=== PATIENT | female | born 1980 | race African-American/Black ===

== ENCOUNTER 2017-09-05 18:17 | Emergency (ER) | payer SELFPAY ==
[~2017-09-05] VITALS: Ht 170.2 cm; Wt 113.4 kg
[2017-09-05] MEDS ORDERED: NKM (18:30)
--- NOTE | 2017-09-05 18:31 | Emergency Room Report ---
History of Present Illness General Chief Complaint: Complications Source: Patient Present Illness HPI 36-year-old female presents to the emergency department complaining of vaginal bleeding since Friday (3 days ) and a positive at home urine test. Patient calculated to be approximately 9 weeks since her last menstrual cycle. Patient is and did not require rhogam or have any complications with previous NVD's. she denies abdominal pain, nausea, vomiting, fevers, chills. She denies complications with previous pregnancies. Patient states she has not followed up with an [employer] and and has not had IUP established. She scratched blood loss to scant bright red blood upon wiping when using the restroom in addition to visible blood on and panti-liners. Patient states she' s used approximately or panti-liners per day. Denies CP, Palpitations, LOC, AMS , dizziness, Changes in Vision, Sensation, paresthesias, or a sudden severe headache. Allergies: Coded Allergies: No Known Allergies (Unverified , 09/05/17) Patient History Past Medical History: see triage record Past Surgical History: none Pertinent Family History: none Last Menstrual Period: 07/01/17 Now: Yes - 9 weeks Immunizations: UTD Reviewed Nursing Documentation: PMH: Agreed, PSxH: Agreed Nursing Documentation-PMH Past Medical History: No Stated History Review of Systems All Other Systems: negative except mentioned in HPI Physical Exam Vital Signs Date Time Temp Pulse Resp B/P (MAP) Pulse Ox O2 Delivery O2 Flow Rate FiO2 09/05/17 18:23 98.1 72 17 127/90 100 Room Air Sp02 EP Interpretation: reviewed, normal General Appearance: no apparent distress, alert, GCS 15, non-toxic Head: normocephalic, atraumatic Eyes: bilateral eye normal inspection ENT: hearing grossly normal, normal voice Respiratory: lungs clear, normal breath sounds, speaking full sentences Cardiovascular #1: regular rate, rhythm Gastrointestinal: normal bowel sounds, non tender, soft, no guarding, no rebound Rectal: deferred Genitourinary: normal inspection, no CVA tenderness, adnexa normal, bladder normal, cervix normal, ext genitalia/vag normal, os closed, other - scant bright red blood in the vaginal vault Musculoskeletal: back normal, gait/station normal Neurologic: alert, oriented x3, responsive, motor strength/tone normal, sensory intact, normal gait, speech normal Skin: normal color, no rash, warm/dry, well hydrated Medical Decision Making PA Attestation Dr. Hernandez is my supervising Physician whom patient management has been discussed with. Diagnostic Impression: Primary Impression: Spotting affecting in first trimester Additional Impression: Threatened in early ER Course 36-year-old female presents to the emergency department complaining of vaginal bleeding since Friday (3 days ) and a positive at home urine test. Patient calculated to be approximately 9 weeks since her last menstrual cycle. Patient is and did not require rhogam or have any complications with previous NVD's. she denies abdominal pain, nausea, vomiting, fevers, chills. She denies complications with previous pregnancies. Patient states she has not followed up with an [employer] and and has not had IUP established. She scratched blood loss to scant bright red blood upon wiping when using the restroom in addition to visible blood on and panti-liners. Patient states she' s used approximately or panti-liners per day. Denies CP, Palpitations, LOC, AMS , dizziness, Changes in Vision, Sensation, paresthesias, or a sudden severe headache. Ddx considered but are not limited to: Fibroid, ectopic , Fibroid, Spontaneous ,hypovolemia, anemia just to name a few. Vital signs: are WNL, pt. is afebrile H&PE are most consistent with: spotting during early , threatened ORDERS: -CBC: unremarkable no evidence of significant acute blood loss or anemia, no leukocytosis -BMP: WNL -Urine hcg- Positive -UA: negative for infection, presence of RBC's and occult blood consistent with vaginal bleeding. -serum Hcg Quant: 2443 - Blood/RH type and screen- Pending at time of D/C ( pt. had blood drawn twice as lab stated they did not receive all the required tubes, pt. was unable to wait for results of type and screen. d/w pt. that if it comes back negative I will call her to return to ED or go immediately to OBGYN. lab canceled the type and screen and results were never received due to this cancellation after the pt. left ED Department. lab did not call ED to inform that this important test was being canceled). Although unlikely that pt. is Rh negative as she stated she has had two prior deliveries and did not need rho-flaco, I felt it was important to still obtain this test for our documentation to support pt. reported hx. -Pelvic US complete- intrauterine estimated at 6 weeks gestation, no HR, no free-fluid, normal ovaries with flow per US tech verbal report. ED INTERVENTIONS: None at this time. - D/w pt. importance of follow up in 48 hours with OBGYN for repeat hcg, and US. gave ED return precautions. DISCHARGE: At this time pt. is stable for d/c to home. Will provide printed patient care instructions, and any necessary prescriptions. Care plan and follow up instructions have been discussed with the patient prior to discharge. Labs Test 09/05/17 18:35 09/05/17 18:56 09/05/17 21:15 Urine Color Yellow Urine Appearance Clear Urine pH 5 (4.5-8.0) Urine Specific [place] 1.025 (1.005-1.035) Urine Protein 1+ (NEGATIVE) Urine Glucose (UA) Negative (NEGATIVE) Urine Ketones 1+ (NEGATIVE) Urine Occult Blood 5+ (NEGATIVE) Urine Nitrite Negative (NEGATIVE) Urine Bilirubin Negative (NEGATIVE) Urine Urobilinogen 1 MG/DL (0.0-1.0) Urine Leukocyte Esterase 1+ (NEGATIVE) Urine RBC 2-4 /HPF (0 - 2) Urine WBC 2-4 /HPF (0 - 2) Urine Squamous Epithelial Cells Few /LPF (NONE/OCC) Urine Bacteria Few /HPF (NONE) Urine HCG, Qualitative Positive Sodium Level 136 MMOL/L (136-145) Potassium Level 4.0 MMOL/L (3.5-5.1) Chloride Level 104 MMOL/L (98-107) Carbon Dioxide Level 20 MMOL/L (21-32) Blood Urea Nitrogen 6 mg/dL (7-18) Creatinine 0.9 MG/DL (0.55-1.30) Estimat Glomerular Filtration Rate > 60 mL/min (>60) Glucose Level 85 MG/DL (74-106) Calcium Level 9.7 MG/DL (8.5-10.1) Human Chorionic Gonadotropin, Quant 2443 mIU/mL (1-6) White Blood Count 4.9 K/UL (4.8-10.8) Red Blood Count 4.24 M/UL (4.20-5.40) Hemoglobin 13.9 G/DL (12.0-16.0) Hematocrit 40.1 % (37.0-47.0) Mean Corpuscular Volume 95 FL (80-99) Mean Corpuscular Hemoglobin 32.7 PG (27.0-31.0) Mean Corpuscular Hemoglobin Concent 34.6 G/DL (32.0-36.0) Red Cell Distribution Width 12.9 % (11.6-14.8) Platelet Count 240 K/UL (150-450) Mean Platelet Volume 11.1 FL (6.5-10.1) Neutrophils (%) (Auto) 49.0 % (45.0-75.0) Lymphocytes (%) (Auto) 43.0 % (20.0-45.0) Monocytes (%) (Auto) 5.7 % (1.0-10.0) Eosinophils (%) (Auto) 0.7 % (0.0-3.0) Basophils (%) (Auto) 1.6 % (0.0-2.0) Last Vital Signs Date Time Temp Pulse Resp B/P (MAP) Pulse Ox O2 Delivery O2 Flow Rate FiO2 09/05/17 18:23 98.1 72 17 127/90 100 Room Air Disposition: HOME, SELF-CARE Condition: Stable Scripts Vit #91/Fe Fum/Fa/Dha ( + DHA COMBO PACK) 1 Each Combo..pkg 1 EACH PO DAILY, #1 PACK 3 Refills Prov: Peyton Mcgill 09/05/17 Patient Instructions: Threatened Miscarriage, [id number], Vaginal Bleeding During , First Trimester, [id number] Additional Instructions: Take medications as directed. Follow up with a OBGYN in 48 Hours for repeat hcg today your quant was 2336 and repeat Ultra Sound, even if your symptoms have resolved. --Please review list of primary care clinics, if you do not already have a primary care provider Return sooner to ED if new symptoms occur, or current symptoms become worse. - Please note that this Emergency Department Report was dictated using [employer]re[employer]en[employer] specialist technology software, occasionally this can lead to erroneous entry secondary to interpretation by the dictation equipment. Peyton Mcgill Sep 05, 2017 18:31
[2017-09-05 18:52] LABS: APPEARANCE,URINE CLEAR; BILIRUBIN, URINE NEGATIVE (NEGATIVE); GLUCOSE, URINE (UA) NEGATIVE (NEGATIVE); KETONES,URINE 1+ (NEGATIVE); LEUKOCYTE ESTERASE ,URINE 1+ (NEGATIVE); NITRITE,URINE NEGATIVE (NEGATIVE); PH,URINE 5 (4.5-8.0); PROTEIN,URINE 1+ (NEGATIVE); UROBILINOGEN,URINE 1 MG/DL (0.0-1.0)
[2017-09-05 18:54] LABS: COLOR,URINE YELLOW
[2017-09-05 19:48] LABS: BLOOD UREA NITROGEN 6 mg/dL (7-18); CARBON DIOXIDE 20 MMOL/L (21-32); CHLORIDE 104 MMOL/L (98-107); CREATININE 0.9 MG/DL (0.55-1.30); SODIUM 136 MMOL/L (136-145)
[2017-09-05 19:49] LABS: CALCIUM 9.7 MG/DL (8.5-10.1)
[2017-09-05] MEDS ORDERED: PRENATAL + DHA1 EAC1 PO (20:57)
[2017-09-05 21:15] VITALS: BP 131/82
[2017-09-05 22:01] LABS: BASOPHILS % (AUTO) 1.6 % (0.0-2.0); EOSINOPHILS % (AUTO) 0.7 % (0.0-3.0); HEMATOCRIT 40.1 % (37.0-47.0); HEMOGLOBIN 13.9 G/DL (12.0-16.0); MEAN CORPUSCULAR VOLUME 95 FL (80-99); MONOCYTES % (AUTO) 5.7 % (1.0-10.0); PLATELET COUNT 240 K/UL (150-450); RED BLOOD COUNT 4.24 M/UL (4.20-5.40); RED CELL DISTRIBUTION WIDTH 12.9 % (11.6-14.8); WHITE BLOOD COUNT 4.9 K/UL (4.8-10.8)
--- NOTE | 2017-09-06 08:39 | Diagnostic Imaging Report ---
Indication: Pelvic pain Technique: ULT PELVIC + TRANSVAG. COMPLETE Comparison: None. Findings: There is an intrauterine gestational sac. A tiny echogenic structures noted within it. This does not have the appearance of a normal yolk sac. No normal yolk sacs identified. No cardiac activity. Ovaries are normal. Evidence of gestational sac corresponds to 5 weeks. Impression: Intrauterine gestational sac measure approximately 5 weeks gestation. Small echogenic structure within the sac. This may or present a small abnormal yolk sac or small embryo without a yolk sac. Viability not determined. Followup in 11 days suggested.
== END 2017-09-05 21:15 | disposition home or self-care (01) ==
LOC: EMR 18:45
DX: O20.0 Threatened abortion (principal); Z3A.09 9 weeks gestation of pregnancy
CPT/HCPCS: 76830; 76856; 80048; 81003; 81025; 84702; 85025; 99284

== ENCOUNTER 2017-09-09 09:35 | Emergency (ER) | payer SELFPAY ==
[~2017-09-09] VITALS: Ht 170.2 cm; Wt 113.4 kg
[~2017-09-09 09:35] MED LIST: NKM; PRENATAL + DHA1 EAC1 PO
[2017-09-09 09:50] VITALS: BP 125/65
[2017-09-09 10:19] LABS: BILIRUBIN, URINE NEGATIVE (NEGATIVE); COLOR,URINE PALE YELLOW; GLUCOSE, URINE (UA) NEGATIVE (NEGATIVE); KETONES,URINE NEGATIVE (NEGATIVE); LEUKOCYTE ESTERASE ,URINE NEGATIVE (NEGATIVE); NITRITE,URINE NEGATIVE (NEGATIVE); PH,URINE 6 (4.5-8.0); PROTEIN,URINE NEGATIVE (NEGATIVE); UROBILINOGEN,URINE NORMAL MG/DL (0.0-1.0)
[2017-09-09 10:22] LABS: APPEARANCE,URINE SLIGHTLY CLOUDY
[2017-09-09 10:48] LABS: BASOPHILS % (AUTO) 0.9 % (0.0-2.0); EOSINOPHILS % (AUTO) 0.9 % (0.0-3.0); HEMATOCRIT 37.2 % (37.0-47.0); HEMOGLOBIN 12.3 G/DL (12.0-16.0); LYMPHOCYTES % (AUTO) 42.9 % (20.0-45.0); MEAN CORPUSCULAR VOLUME 94 FL (80-99); MONOCYTES % (AUTO) 7.5 % (1.0-10.0); NEUTROPHILS % (AUTO) 47.8 % (45.0-75.0); PLATELET COUNT 207 K/UL (150-450); RED BLOOD COUNT 3.94 M/UL (4.20-5.40); RED CELL DISTRIBUTION WIDTH 12.6 % (11.6-14.8); WHITE BLOOD COUNT 5.3 K/UL (4.8-10.8)
[2017-09-09 10:53] LABS: ALANINE AMINOTRANSFERASE 21 U/L (12-78); ALBUMIN 3.9 G/DL (3.4-5.0); ALKALINE PHOSPHATASE 35 U/L (46-116); ANION GAP 7 mmol/L (5-15); ASPARTATE AMINO TRANSFERASE 17 U/L (15-37); BILIRUBIN,TOTAL 0.3 MG/DL (0.2-1.0); BLOOD UREA NITROGEN 5 mg/dL (7-18); CALCIUM 9.1 MG/DL (8.5-10.1); CARBON DIOXIDE 25 MMOL/L (21-32); CHLORIDE 107 MMOL/L (98-107); CREATININE 0.9 MG/DL (0.55-1.30); POTASSIUM 3.7 MMOL/L (3.5-5.1); SODIUM 139 MMOL/L (136-145)
--- NOTE | 2017-09-09 12:50 | Emergency Room Report ---
History of Present Illness General Chief Complaint: Vaginal Source: Patient Present Illness HPI This patient states that she has had light vaginal bleeding for about one week. She states that by dates she should be 9 weeks . She states that she was seen here 4 days ago and told she may be having a miscarriage. She states she continues to have light bleeding and some cramping. She denies passage of clots or tissue. She denies fever or chills. She denies nausea or vomiting. She denies dysuria or hematuria. She has no other complaints. Allergies: Coded Allergies: No Known Allergies (Unverified , 09/05/17) Patient History Past Medical History: none, see triage record Social History: Denies: smoking, alcohol use, drug use Now: Yes - 6 weeks. : 6 Para: 2 Reviewed Nursing Documentation: PMH: Agreed, PSxH: Agreed Nursing Documentation-PMH Past Medical History: No Stated History Review of Systems All Other Systems: negative except mentioned in HPI Physical Exam Vital Signs Date Time Temp Pulse Resp B/P (MAP) Pulse Ox O2 Delivery O2 Flow Rate FiO2 09/09/17 09:38 98.2 76 17 126/75 98 Room Air Sp02 EP Interpretation: reviewed, normal General Appearance: no apparent distress, alert, GCS 15, non-toxic Head: normocephalic, atraumatic Eyes: bilateral eye normal inspection, bilateral eye PERRL ENT: hearing grossly normal, normal pharynx, no angioedema, normal voice Neck: full range of motion, supple/symm/no masses Respiratory: chest non-tender, lungs clear, normal breath sounds, speaking full sentences Cardiovascular #1: regular rate, rhythm, no edema Gastrointestinal: normal bowel sounds, non tender, soft, non-distended, no guarding, no rebound Rectal: deferred Musculoskeletal: back normal, gait/station normal, normal range of motion, non- tender Neurologic: alert, oriented x3, responsive, motor strength/tone normal, sensory intact, speech normal Psychiatric: judgement/insight normal, memory normal, mood/affect normal, no suicidal/homicidal ideation Skin: normal color, no rash, warm/dry, well hydrated Medical Decision Making Diagnostic Impression: Primary Impression: Missed Additional Impression: demise ER Course Patient presents with a missed . She has down turning hCG and that no progression on her intrauterine . Pelvic ultrasound shows a six-week and the patient is around 9 weeks by dates. The size of the intrauterine and a downturned and hCG is consistent with a missed . The patient is also having bleeding. Further discussion with the patient and she would [facility]. She does not have medical insurance and cannot afford to have an admission to the hospital. Also, patient is stable in this is an appropriate plan. I do not suspect septic . The patient is stable with normal vital signs and laboratory workup. The patient is given close return precautions and followup instructions. Laboratory Tests Test 09/09/17 10:00 09/09/17 10:18 09/09/17 10:38 Urine Color Pale yellow Urine Appearance Slightly cloudy Urine pH 6 (4.5-8.0) Urine Specific [place] 1.010 (1.005-1.035) Urine Protein Negative (NEGATIVE) Urine Glucose (UA) Negative (NEGATIVE) Urine Ketones Negative (NEGATIVE) Urine Occult Blood 3+ (NEGATIVE) H Urine Nitrite Negative (NEGATIVE) Urine Bilirubin Negative (NEGATIVE) Urine Urobilinogen Normal MG/DL (0.0-1.0) Urine Leukocyte Esterase Negative (NEGATIVE) Urine RBC 2-4 /HPF (0 - 2) H Urine WBC 0-2 /HPF (0 - 2) Urine Squamous Epithelial Cells Occasional /LPF Urine Bacteria Few /HPF (NONE) Sodium Level 139 MMOL/L (136-145) Potassium Level 3.7 MMOL/L (3.5-5.1) Chloride Level 107 MMOL/L (98-107) Carbon Dioxide Level 25 MMOL/L (21-32) Anion Gap 7 mmol/L (5-15) Blood Urea Nitrogen 5 mg/dL (7-18) L Creatinine 0.9 MG/DL (0.55-1.30) Estimate Glomerular Filtration Rate > 60 mL/min (>60) Glucose Level 92 MG/DL (74-106) Calcium Level 9.1 MG/DL (8.5-10.1) Total Bilirubin 0.3 MG/DL (0.2-1.0) Aspartate Amino Transferase (AST) 17 U/L (15-37) Alanine Aminotransferase (ALT) 21 U/L (12-78) Alkaline Phosphatase 35 U/L (46-116) L Total Protein 8.0 G/DL (6.4-8.2) Albumin 3.9 G/DL (3.4-5.0) Globulin 4.1 g/dL Albumin/Globulin Ratio 1.0 (1.0-2.7) Human Chorionic Gonadotropin, Quant 1746 mIU/mL (1-6) H White Blood Count 5.3 K/UL (4.8-10.8) Red Blood Count 3.94 M/UL (4.20-5.40) L Hemoglobin 12.3 G/DL (12.0-16.0) Hematocrit 37.2 % (37.0-47.0) Mean Corpuscular Volume 94 FL (80-99) Mean Corpuscular Hemoglobin 31.3 PG (27.0-31.0) H Mean Corpuscular Hemoglobin Concent 33.1 G/DL (32.0-36.0) Red Cell Distribution Width 12.6 % (11.6-14.8) Platelet Count 207 K/UL (150-450) Mean Platelet Volume 7.5 FL (6.5-10.1) Neutrophils (%) (Auto) 47.8 % (45.0-75.0) Lymphocytes (%) (Auto) 42.9 % (20.0-45.0) Monocytes (%) (Auto) 7.5 % (1.0-10.0) Eosinophils (%) (Auto) 0.9 % (0.0-3.0) Basophils (%) (Auto) 0.9 % (0.0-2.0) CT/MRI/US Diagnostic Results CT/MRI/US Diagnostic Results : Imaging Test Ordered: Pelvic US: Impression Intrauterine . Gestational sac with pole seen with no cardiac movement noted. demise. Last Vital Signs Date Time Temp Pulse Resp B/P (MAP) Pulse Ox O2 Delivery O2 Flow Rate FiO2 09/09/17 09:50 98.1 77 18 125/65 100 Room Air Status: improved Disposition: HOME, SELF-CARE Condition: Improved Referrals: NOT CHOSEN IVY/,REFERRING (PCP) TAE DE LA CRUZ D.O. Sep 09, 2017 12:50
[2017-09-09 13:06] VITALS: BP 118/75
--- NOTE | 2017-09-09 13:54 | Diagnostic Imaging Report ---
Indication:Lower abdominal and pelvic pain. is positive Technique: Grayscale and duplex Doppler imaging of the pelvis performed utilizing a transabdominal scan and endovaginal scan. Comparison: 09/05/17 Findings: There is no change. Again there is a gestational sac central part of the uterus measuring 5 weeks. There is a small echogenic structure within the sac devoid of cardiac activity, nonspecific. This does not have the appearance of a normal yolk sac. Recommend correlation with serial quantitative beta-hCG. Findings may represent intrauterine demise but the sac diameter measurements are early. Therefore, followup is suggested. The ovaries appear normal bilaterally. Impression: No change in the last 4 days. 5 week gestational sac, viability indeterminate. Followup recommended.
== END 2017-09-09 13:09 | disposition home or self-care (01) ==
LOC: EMR 09:48
DX: O02.1 Missed abortion (principal)
CPT/HCPCS: 36415; 76830; 76856; 80053; 81003; 84702; 85025; 86850; 86900; 86901; 96361; 99284

== ENCOUNTER 2018-03-16 21:48 | Emergency (ER) | payer SELFPAY ==
[~2018-03-16] VITALS: Ht 170.2 cm; Wt 117.5 kg
[2018-03-16 22:00] VITALS: BP 127/79
[2018-03-16 23:50] VITALS: BP 0/0
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
== END 2018-03-16 22:30 | disposition home or self-care (01) ==
LOC: EMR 22:15
DX: O20.0 Threatened abortion (principal); Z3A.08 8 weeks gestation of pregnancy; V49.60XA Unspecified car occupant injured in collision with unspecified motor vehicles in traffic accident, initial encounter; Y92.410 Unspecified street and highway as the place of occurrence of the external cause
CPT/HCPCS: 76801; 76830; 81025; 99284

== ENCOUNTER 2018-11-28 14:01 | Emergency (ER) | payer OTHER ==
[~2018-11-28] VITALS: Ht 170.2 cm; Wt 113.4 kg
--- NOTE | 2018-11-28 14:21 | NUR ---
ED Nurse Note: Pt came in due to left ankle pain after twisting it today. Noted swelling but no obvious fracture. pt AAO x4, ambulatory.
[2018-11-28] MEDS ORDERED: Naproxen 500mg tab ORAL ONE (15:15)
--- NOTE | 2018-11-28 15:25 | NUR ---
ED Nurse Note: Radiologist at the bed side for xray.
--- NOTE | 2018-11-28 15:33 | Emergency Room Report ---
History of Present Illness General Chief Complaint: Pain Source: Patient Present Illness HPI 37-year-old female with no significant past medical history here complaining of pain in her left ankle after falling and twisting her ankle today. Patient is rating at 10 out of 10 pain denying any radiation. She further denies any tingling or numbness. Taking any medication for pain. Patient is able to move her toes and complains of pain with dorsiflexion of her foot. Denies all other injuries, chest pain, palpitation, SOB, and all other associated sympotms. Allergies: Coded Allergies: No Known Allergies (Unverified , 09/05/17) Patient History Past Medical History: see triage record Past Surgical History: unable to obtain Last Menstrual Period: 11/09/2018 Now: No - Unknown : 2 Para: 2 Immunizations: UTD Reviewed Nursing Documentation: PMH: Agreed; PSxH: Agreed Nursing Documentation-PMH Past Medical History: No Stated History Review of Systems All Other Systems: negative except mentioned in HPI Physical Exam Vital Signs Date Time Temp Pulse Resp B/P (MAP) Pulse Ox O2 Delivery O2 Flow Rate FiO2 11/28/18 14:11 98.6 92 15 126/67 100 Room Air Sp02 EP Interpretation: reviewed, normal General Appearance: normal inspection, well appearing, no apparent distress, alert Head: normocephalic, atraumatic Eyes: bilateral eye normal inspection, bilateral eye PERRL ENT: normal ENT inspection Neck: normal inspection, full range of motion, supple Respiratory: normal inspection, lungs clear, no rhonchi, no retraction, no wheezing Cardiovascular #1: normal inspection, normal peripheral pulses, no edema, no gallop, no murmur, normal capillary refill Cardiovascular #2: 2+ dorsalis pedis (R), 2+ dorsalis pedis (L) Gastrointestinal: normal inspection, soft Rectal: deferred Genitourinary: deferred Musculoskeletal: back normal, no calf tenderness, swelling - left ankle on the left lateral malleolus no tenderness to palpation, range of motion review of systems dorsiflexion of the foot. Capillary refill intact dorsalis pedis 2+ Neurologic: normal inspection, alert, oriented x3 Psychiatric: normal inspection, judgement/insight normal Skin: normal inspection, normal color, no rash, warm/dry, normal turgor Lymphatic: normal inspection, no adenopathy Medical Decision Making PA Attestation All diagnostic treatment plans are reviewed and discussed with my supervising physician Diagnostic Impression: Primary Impression: Left ankle sprain ER Course 37-year-old female with no significant past medical history here complaining of pain in her left ankle after falling and twisting her ankle today. Patient is rating at 10 out of 10 pain denying any radiation. She further denies any tingling or numbness. Taking any medication for pain. Patient is able to move her toes and complains of pain with dorsiflexion of her foot. Denies all other injuries, chest pain, palpitation, SOB, and all other associated sympotms. Ddx considered but are not limited to left ankle sprain, left ankle fracture, left ankle contusion Vital signs: are WNL, pt. is afebrile H&PE are most consistent with left ankle sprain ORDERS: x-ray of left ankle, naproxen, crutches, Dov wrap ED INTERVENTIONS: None required at this time. DISCHARGE: At this time pt. is stable for d/c to home. Will provide printed patient care instructions, and any necessary prescriptions. Care plan and follow up instructions have been discussed with the patient prior to discharge. Other X-Ray Diagnostic Results Other X-Ray Diagnostic Results : X-Ray ordered: left ankle # of Views/Limited Vs Complete: 2 View Indication: Pain EP Interpretation: Yes PA Xray: Interpretation reviewed, by supervising MD, and agrees with findings. Interpretation: no dislocation, no soft tissue swelling, no fractures Impression: No acute disease Electronically Signed by: yon GUERRIER Scribe Text FINDINGS: Bones/joints: No acute fracture. Soft tissues: Soft tissue swelling. IMPRESSION: No acute fracture. Last Vital Signs Date Time Temp Pulse Resp B/P (MAP) Pulse Ox O2 Delivery O2 Flow Rate FiO2 11/28/18 14:11 98.6 92 15 126/67 100 Room Air Disposition: HOME, SELF-CARE Condition: Stable Scripts Diclofenac Sodium (VOLTAREN) 100 Gm Gel..gram. 2 GM TP BID, #100 GM Prov: Yon Branch 11/28/18 Naproxen* (NAPROXEN*) 500 Mg Tablet 500 MG ORAL TWICE A DAY, #20 TAB Prov: Yon Branch 11/28/18 Referrals: [facility],REFERRING (PCP) Patient Instructions: Ankle Sprain, [id number] Additional Instructions: alternating icing and heating, elevate affected area taking medication as directed and follow with the primary care provider for further assessment. Yon Branch Nov 28, 2018 15:33
[2018-11-28 16:00] VITALS: BP 120/86
--- NOTE | 2018-11-28 16:00 | NUR ---
ED Nurse Note: Yon GUERRIER ordered keeley wrap and crutches for the pt.
--- NOTE | 2018-11-28 16:01 | Diagnostic Imaging Report ---
EXAM: XR Left Ankle, 2 Views CLINICAL HISTORY: TRAUMA TECHNIQUE: Frontal and lateral views of the left ankle. COMPARISON: No relevant prior studies available. FINDINGS: Bones/joints: No acute fracture. Soft tissues: Soft tissue swelling. IMPRESSION: No acute fracture.
[2018-11-28] MEDS ORDERED: VOLTAREN100 G1 TP (16:03)
[2018-11-28] MEDS ORDERED: NAPROXEN500 M2 ORAL (16:03)
[2018-11-28 16:17] VITALS: BP 120/86
--- NOTE | 2018-11-28 16:17 | NUR ---
ED Nurse Note: Pt cleared by CHEY Marvin for discharge. ACI/prescription given and crutches instruction explained to pt and verbalized understanding of teachings. All medical devices such as ID band removed. Pt is AAO x4, ambulatory and left with all personal belongings.
== END 2018-11-28 16:17 | disposition home or self-care (01) ==
LOC: EMR 14:30
DX: S93.402A Sprain of unspecified ligament of left ankle, initial encounter (principal); W19.XXXA Unspecified fall, initial encounter; Y92.9 Unspecified place or not applicable
CPT/HCPCS: 99283

== ENCOUNTER 2019-02-17 11:18 | Emergency (ER) | payer MEDICAID, OTHER ==
[~2019-02-17] VITALS: Ht 170.2 cm; Wt 145.1 kg
[~2019-02-17 11:18] MED LIST changes: +NAPROXEN500 M2 ORAL; +VOLTAREN100 G1 TP
--- NOTE | 2019-02-17 11:33 | NUR ---
ED Nurse Note: Pt came into the ER w/ complaints of rectum abscess x 1 week. Pt is complaining of 10/10 pain in the area. Non radiating. Pt is A + O x4. Ambulatory. Skin warm to touch.
[2019-02-17 11:34] VITALS: BP 115/75
[2019-02-17] MEDS ORDERED: Isovue-300 100ml vial INJ PRN (12:30)
[2019-02-17 12:55] LABS: BASOPHILS % (AUTO) 1.2 % (0.0-2.0); EOSINOPHILS % (AUTO) 0.3 % (0.0-3.0); HEMATOCRIT 39.7 % (37.0-47.0); HEMOGLOBIN 13.4 G/DL (12.0-16.0); LYMPHOCYTES % (AUTO) 28.3 % (20.0-45.0); MEAN CORPUSCULAR VOLUME 90 FL (80-99); MONOCYTES % (AUTO) 7.2 % (1.0-10.0); PLATELET COUNT 210 K/UL (150-450); RED BLOOD COUNT 4.41 M/UL (4.20-5.40); RED CELL DISTRIBUTION WIDTH 12.8 % (11.6-14.8); WHITE BLOOD COUNT 5.7 K/UL (4.8-10.8)
[2019-02-17 13:08] LABS: ANION GAP 8 mmol/L (5-15); BLOOD UREA NITROGEN 6 mg/dL (7-18); CALCIUM 9.3 MG/DL (8.5-10.1); CARBON DIOXIDE 26 MMOL/L (21-32); CHLORIDE 104 MMOL/L (98-107); CREATININE 0.9 MG/DL (0.55-1.30); POTASSIUM 4.1 MMOL/L (3.5-5.1); SODIUM 138 MMOL/L (136-145)
[2019-02-17 13:18] LABS: ALANINE AMINOTRANSFERASE 25 U/L (12-78); ALBUMIN 3.5 G/DL (3.4-5.0); ALBUMIN/GLOBULIN RATIO 0.8 (1.0-2.7); ALKALINE PHOSPHATASE 55 U/L (46-116); ASPARTATE AMINO TRANSFERASE 19 U/L (15-37); BILIRUBIN,TOTAL 0.5 MG/DL (0.2-1.0)
[2019-02-17 13:59] VITALS: BP 112/77
--- NOTE | 2019-02-17 14:02 | NUR ---
ED Nurse Note: Pt went down to CT.
--- NOTE | 2019-02-17 14:22 | NUR ---
ED Nurse Note: Pt back from CT.
--- NOTE | 2019-02-17 15:07 | Emergency Room Report ---
History of Present Illness General Chief Complaint: Skin Rash/Abscess Source: Patient Present Illness Allergies: Coded Allergies: No Known Allergies (Unverified , 09/05/17) Patient History Last Menstrual Period: 02/07/19 Now: No Nursing Documentation-[facility] Past Medical History: No Stated History Physical Exam Vital Signs Date Time Temp Pulse Resp B/P (MAP) Pulse Ox O2 Delivery O2 Flow Rate FiO2 02/17/19 11:22 98.6 103 18 112/72 95 Room Air Medical Decision Making Diagnostic Impression: Primary Impression: Pilonidal cyst Laboratory Tests Test 02/17/19 12:36 02/17/19 13:32 White Blood Count 5.7 K/UL (4.8-10.8) Red Blood Count 4.41 M/UL (4.20-5.40) Hemoglobin 13.4 G/DL (12.0-16.0) Hematocrit 39.7 % (37.0-47.0) Mean Corpuscular Volume 90 FL (80-99) Mean Corpuscular Hemoglobin 30.5 PG (27.0-31.0) Mean Corpuscular Hemoglobin Concent 33.9 G/DL (32.0-36.0) Red Cell Distribution Width 12.8 % (11.6-14.8) Platelet Count 210 K/UL (150-450) Mean Platelet Volume 8.6 FL (6.5-10.1) Neutrophils (%) (Auto) 63.0 % (45.0-75.0) Lymphocytes (%) (Auto) 28.3 % (20.0-45.0) Monocytes (%) (Auto) 7.2 % (1.0-10.0) Eosinophils (%) (Auto) 0.3 % (0.0-3.0) Basophils (%) (Auto) 1.2 % (0.0-2.0) Sodium Level 138 MMOL/L (136-145) Potassium Level 4.1 MMOL/L (3.5-5.1) Chloride Level 104 MMOL/L (98-107) Carbon Dioxide Level 26 MMOL/L (21-32) Anion Gap 8 mmol/L (5-15) Blood Urea Nitrogen 6 mg/dL (7-18) L Creatinine 0.9 MG/DL (0.55-1.30) Estimate Glomerular Filtration Rate > 60 mL/min (>60) Glucose Level 83 MG/DL (74-106) Calcium Level 9.3 MG/DL (8.5-10.1) Total Bilirubin 0.5 MG/DL (0.2-1.0) Aspartate Amino Transferase (AST) 19 U/L (15-37) Alanine Aminotransferase (ALT) 25 U/L (12-78) Alkaline Phosphatase 55 U/L (46-116) Total Protein 7.8 G/DL (6.4-8.2) Albumin 3.5 G/DL (3.4-5.0) Globulin 4.3 g/dL Albumin/Globulin Ratio 0.8 (1.0-2.7) L Urine HCG, Qualitative Negative (NEGATIVE) Last Vital Signs Date Time Temp Pulse Resp B/P (MAP) Pulse Ox O2 Delivery O2 Flow Rate FiO2 02/17/19 13:59 98.5 75 22 112/77 97 Room Air Referrals: [facility],REFERRING (PCP) Vanna Rosenberg DO Feb 17, 2019 15:07
[2019-02-17] MEDS ORDERED: DOXYCYCLINE MO100 MG ORAL (15:09)
--- NOTE | 2019-02-17 15:17 | Diagnostic Imaging Report ---
Indication: Painful bump near anus concern for perianal abscess Technique: CT of the pelvis utilizing automated exposure control with intravenous contrast. Venous scanning performed. Axial, sagittal and coronal reformats presented. CT dose: Total DLP 1012.77 mGycm; CTDI vol 29.57 mGy Comparison: None Findings: Please note that evaluation of the deep pelvic structures is somewhat limited due to streak artifact and photon starvation related to patient's body habitus and portions of the patient's body being in contact with the gantry. Within these limitations the following observations are made: Questionable mild thickening of the perianal skin. There is no definite well-defined fluid collection to suggest abscess. There is no perirectal fluid collection or significant perirectal inflammatory stranding. The appendix is normal in caliber. There is no evidence of bowel obstruction. No inflammatory changes are noted within the mesentery. There is a small fat-containing umbilical hernia. A small approximately 1.6 cm low-attenuation lesions noted in the right adnexa most likely representing a physiologic follicle or cyst. Uterus is grossly unremarkable. Apparent bladder wall thickening likely related to underdistention. Correlation with urinalysis is recommended to exclude cystitis. A vulvar or clitoral piercing is noted. Imaged vascular structures are unremarkable. There is no acute osseous abnormality. IMPRESSION: Limited exam as above. Some questionable thickening of the perianal skin. Correlate clinically to exclude a mild perianal/gluteal cleft cellulitis. No definite well-defined/drainable fluid collection to suggest perianal abscess. No evidence of perirectal abscess. The appendix is normal. Apparent thickening of the urinary bladder likely related to underdistention. Correlation with urinalysis recommended to exclude cystitis. Additional incidental findings as above. The CT scanner at [facility] is accredited by the [employer] and the scans are performed using protocols designed to limit radiation exposure to as low as reasonably achievable to attain images of sufficient resolution adequate for diagnostic evaluation.
[2019-02-17 15:28] VITALS: BP 115/75
--- NOTE | 2019-02-17 15:29 | NUR ---
ER DISCHARGE NOTE: Patient is cleared to be discharged per ERMD, pt is aox4, on room air, with stable vital signs. pt was given dc and prescription instructions, pt was able to verbalize understanding, pt id band and iv site removed without complications. pt is able to ambulate with steady gait. pt took all belongings.
== END 2019-02-17 15:29 | disposition home or self-care (01) ==
LOC: EMR 12:00
DX: L05.91 Pilonidal cyst without abscess (principal)
CPT/HCPCS: 36415; 72193; 80053; 81025; 85025; 99284; Q9967

== ENCOUNTER 2019-06-22 12:41 | Emergency (ER) | payer MEDICAID ==
[~2019-06-22] VITALS: Ht 170.2 cm; Wt 129.3 kg
[~2019-06-22 12:41] MED LIST changes: +DOXYCYCLINE MO100 MG ORAL
[2019-06-22] MEDS ORDERED: NKM (12:57)
[2019-06-22 13:43] LABS: EOSINOPHILS % (AUTO) 0.4 % (0.0-3.0); HEMATOCRIT 39.3 % (37.0-47.0); HEMOGLOBIN 13.3 G/DL (12.0-16.0); LYMPHOCYTES % (AUTO) 38.5 % (20.0-45.0); MEAN CORPUSCULAR VOLUME 92 FL (80-99); MONOCYTES % (AUTO) 8.1 % (1.0-10.0); NEUTROPHILS % (AUTO) 51.9 % (45.0-75.0); PLATELET COUNT 210 K/UL (150-450); RED BLOOD COUNT 4.27 M/UL (4.20-5.40); RED CELL DISTRIBUTION WIDTH 12.4 % (11.6-14.8); WHITE BLOOD COUNT 6.6 K/UL (4.8-10.8)
--- NOTE | 2019-06-22 13:43 | Emergency Room Report ---
History of Present Illness General Chief Complaint: Complications Source: Patient Present Illness HPI 38-year-old female presents to the emergency department complaining of 5 out of 10 severity lower abdominal cramping sensation intermittent with associated spotting clots x3 days. Patient denies any current active bleeding at this time she reports that she is 5 weeks according to confirmed with her OUTPATIENT THERAPIST 4 days ago. Patient states that she is G8, P2 with previous C- section deliveries and late-term preeclampsia during her last . Patient denies nausea, vomiting, fevers, chills, dysuria, urinary frequency or hematuria. Patient denies low back pain swollen tender lymph nodes. Patient denies vaginal discharge other than intermittent spotting that she reports is scant in quantity. Allergies: Coded Allergies: No Known Allergies (Unverified , 09/05/17) Patient History Past Medical History: see triage record Past Surgical History: none Pertinent Family History: none Now: Yes - confirmed. 5weeks. : 8 Para: 2 Reviewed Nursing Documentation: PMH: Agreed; PSxH: Agreed Nursing Documentation-PMH Past Medical History: No Stated History Review of Systems All Other Systems: negative except mentioned in HPI Physical Exam Vital Signs Date Time Temp Pulse Resp B/P (MAP) Pulse Ox O2 Delivery O2 Flow Rate FiO2 06/22/19 12:50 98.4 84 17 110/76 (87) 98 Room Air Sp02 EP Interpretation: reviewed, normal General Appearance: no apparent distress, alert, GCS 15, non-toxic, obese Head: normocephalic, atraumatic Eyes: bilateral eye normal inspection, bilateral eye PERRL ENT: hearing grossly normal, normal voice Neck: full range of motion Respiratory: chest non-tender, lungs clear, normal breath sounds, speaking full sentences Cardiovascular #1: regular rate, rhythm Gastrointestinal: normal bowel sounds, non tender, soft, non-distended, no guarding Rectal: deferred Genitourinary: normal inspection, no CVA tenderness, deferred - for US Musculoskeletal: back normal, gait/station normal, normal range of motion, non- tender Neurologic: alert, oriented x3, responsive, motor strength/tone normal, sensory intact, normal gait, speech normal, grossly normal Psychiatric: judgement/insight normal Skin: no rash Lymphatic: no adenopathy Medical Decision Making PA Attestation Dr. Matt is my supervising Physician whom patient management has been discussed with. Diagnostic Impression: Primary Impression: Vaginal bleeding affecting early Additional Impressions: Threatened miscarriage in early Ovarian cyst during in first trimester ER Course 38-year-old female presents to the emergency department complaining of 5 out of 10 severity lower abdominal cramping sensation intermittent with associated spotting clots x3 days. Patient denies any current active bleeding at this time she reports that she is 5 weeks according to confirmed with her OUTPATIENT THERAPIST 4 days ago. Patient states that she is G8, P2 with previous C- section deliveries and late-term preeclampsia during her last . Patient denies nausea, vomiting, fevers, chills, dysuria, urinary frequency or hematuria. Patient denies low back pain swollen tender lymph nodes. Patient denies vaginal discharge other than intermittent spotting that she reports is scant in quantity. Ddx considered but are not limited to: Fibroid, ectopic , Fibroid, Spontaneous , Vital signs: are WNL, pt. is afebrile H&PE are most consistent with: [ ] spotting during early , Inevitable , Spontaneous ORDERS: -UA: WNL -CBC, CMP, Lipase: WNL -serum Hcg Quant: 34659 - Blood/RH type and screen- see attached labs ( A POSITIVE) -Pelvic US complete- Embryonic and yolk sac without pole estimated at 5 weeks, 6 days gestation. ED INTERVENTIONS: None at this time. DISCHARGE: At this time pt. is stable for d/c to home. Will provide printed patient care instructions, and any necessary prescriptions. Care plan and follow up instructions have been discussed with the patient prior to discharge. Labs Test 06/22/19 13:20 White Blood Count 6.6 K/UL (4.8-10.8) Red Blood Count 4.27 M/UL (4.20-5.40) Hemoglobin 13.3 G/DL (12.0-16.0) Hematocrit 39.3 % (37.0-47.0) Mean Corpuscular Volume 92 FL (80-99) Mean Corpuscular Hemoglobin 31.1 PG (27.0-31.0) Mean Corpuscular Hemoglobin Concent 33.8 G/DL (32.0-36.0) Red Cell Distribution Width 12.4 % (11.6-14.8) Platelet Count 210 K/UL (150-450) Mean Platelet Volume 8.3 FL (6.5-10.1) Neutrophils (%) (Auto) 51.9 % (45.0-75.0) Lymphocytes (%) (Auto) 38.5 % (20.0-45.0) Monocytes (%) (Auto) 8.1 % (1.0-10.0) Eosinophils (%) (Auto) 0.4 % (0.0-3.0) Basophils (%) (Auto) 1.0 % (0.0-2.0) Urine Color Yellow Urine Appearance Clear Urine pH 5 (4.5-8.0) Urine Specific [place] 1.030 (1.005-1.035) Urine Protein 1+ (NEGATIVE) Urine Glucose (UA) Negative (NEGATIVE) Urine Ketones 3+ (NEGATIVE) Urine Blood Negative (NEGATIVE) Urine Nitrite Negative (NEGATIVE) Urine Bilirubin Negative (NEGATIVE) Urine Urobilinogen 1 MG/DL (0.0-1.0) Urine Leukocyte Esterase 2+ (NEGATIVE) Urine RBC 0 /HPF (0 - 2) Urine WBC 2-4 /HPF (0 - 2) Urine Squamous Epithelial Cells Moderate /LPF (NONE/OCC) Urine Amorphous Sediment Few /LPF (NONE) Urine Bacteria Few /HPF (NONE) Sodium Level 135 MMOL/L (136-145) Potassium Level 3.5 MMOL/L (3.5-5.1) Chloride Level 105 MMOL/L (98-107) Carbon Dioxide Level 23 MMOL/L (21-32) Anion Gap 8 mmol/L (5-15) Blood Urea Nitrogen 5 mg/dL (7-18) Creatinine 0.9 MG/DL (0.55-1.30) Estimat Glomerular Filtration Rate > 60 mL/min (>60) Glucose Level 79 MG/DL (74-106) Calcium Level 9.7 MG/DL (8.5-10.1) Total Bilirubin 0.7 MG/DL (0.2-1.0) Aspartate Amino Transf (AST/SGOT) 19 U/L (15-37) Alanine Aminotransferase (ALT/SGPT) 19 U/L (12-78) Alkaline Phosphatase 45 U/L (46-116) Total Protein 8.2 G/DL (6.4-8.2) Albumin 4.0 G/DL (3.4-5.0) Globulin 4.2 g/dL Albumin/Globulin Ratio 1.0 (1.0-2.7) Lipase 156 U/L (73-393) Human Chorionic Gonadotropin, Quant 60233 mIU/mL (1-6) CT/MRI/US Diagnostic Results CT/MRI/US Diagnostic Results : Imaging Test Ordered: Pelvic US OB Impression "Impression: Intrauterine gestational sac. This demonstrates a yolk sac, but no pole or heart activity. Differential considerations include very early , nonviable . Correlation with serial beta hCGs recommended, with consideration for follow-up sonography as clinically indicated. Trace free cul- de-sac fluid, presumed physiologic" --Per official radiology report- Please see report for specific details. Last Vital Signs Date Time Temp Pulse Resp B/P (MAP) Pulse Ox O2 Delivery O2 Flow Rate FiO2 06/22/19 12:50 98.4 84 17 110/76 (87) 98 Room Air Disposition: HOME, SELF-CARE Condition: Stable Scripts Acetaminophen* (TYLENOL EXTRA STRENGTH*) 500 Mg Tablet 500 MG ORAL Q6H, #20 TAB 0 Refills Prov: Peyton Mcgill 06/22/19 Referrals: NON PHYSICIAN (PCP) Departure Forms: Return to Work Return to Work Date: Jun 26, 2019 Work Restrictions: No Heavy Lifting, No Prolonged Standing Other Restrictions: BED REST. Return to Full Activity: Jun 26, 2019 Patient Instructions: Abdominal Pain During , [id number], Threatened Miscarriage, [id number] Additional Instructions: Take medications as directed. YOUR HCG QUANT was : 14,738 Follow up with a OBGYN within 3 days, even if your symptoms have resolved. Return sooner to ED if new symptoms occur, or current symptoms become worse. - Please note that this Emergency Department Report was dictated using [employer] coordinator technology software, occasionally this can lead to erroneous entry secondary to interpretation by the dictation equipment. Peyton Mcgill Jun 22, 2019 13:43
[2019-06-22 13:49] LABS: APPEARANCE,URINE CLEAR; BILIRUBIN, URINE NEGATIVE (NEGATIVE); GLUCOSE, URINE (UA) NEGATIVE (NEGATIVE); KETONES,URINE 3+ (NEGATIVE); LEUKOCYTE ESTERASE ,URINE 2+ (NEGATIVE); NITRITE,URINE NEGATIVE (NEGATIVE); PH,URINE 5 (4.5-8.0); PROTEIN,URINE 1+ (NEGATIVE); UROBILINOGEN,URINE 1 MG/DL (0.0-1.0)
[2019-06-22 13:51] LABS: COLOR,URINE YELLOW
[2019-06-22 13:53] LABS: ANION GAP 8 mmol/L (5-15); BLOOD UREA NITROGEN 5 mg/dL (7-18); CALCIUM 9.7 MG/DL (8.5-10.1); CARBON DIOXIDE 23 MMOL/L (21-32); CHLORIDE 105 MMOL/L (98-107); CREATININE 0.9 MG/DL (0.55-1.30); POTASSIUM 3.5 MMOL/L (3.5-5.1); SODIUM 135 MMOL/L (136-145)
[2019-06-22 13:58] LABS: ALANINE AMINOTRANSFERASE 19 U/L (12-78); ALKALINE PHOSPHATASE 45 U/L (46-116); ASPARTATE AMINO TRANSFERASE 19 U/L (15-37); BILIRUBIN,TOTAL 0.7 MG/DL (0.2-1.0)
[2019-06-22] MEDS ORDERED: TYLENOL EXTRA500 MG ORAL (15:06)
[2019-06-22 15:17] VITALS: BP 126/81
--- NOTE | 2019-06-22 15:55 | Diagnostic Imaging Report ---
Indication: Pelvic pain and light with vaginal spotting, patient Technique: Transabdominal and transvaginal images of the pelvis. Doppler interrogation of the bilateral ovaries Comparison: none Findings: Uterus measures 8.6 cm length by 5.1 cm AP. Within the endometrium there is a gestational sac. This demonstrates surrounding decidual reaction and a yolk sac. No pole or heart activity demonstrated. Mean sac diameter is 20 mm, corresponding estimated gestational age of 5 weeks 6 days. No myometrial abnormality. There is trace free cul-de-sac fluid. Left ovary measures 4.3 cm length. Right ovary measures 2.4 cm length. Ovaries demonstrate normal flow on Doppler imaging. No adnexal mass demonstrated. Impression: Intrauterine gestational sac. This demonstrates a yolk sac, but no pole or heart activity. Differential considerations include very early , nonviable . Correlation with serial beta hCGs recommended, with consideration for follow-up sonography as clinically indicated. Trace free cul-de-sac fluid, presumed physiologic
== END 2019-06-22 15:18 | disposition home or self-care (01) ==
LOC: EMR 13:09
DX: O20.0 Threatened abortion (principal); Z3A.01 Less than 8 weeks gestation of pregnancy; O34.81 Maternal care for other abnormalities of pelvic organs, first trimester; N83.209 Unspecified ovarian cyst, unspecified side
CPT/HCPCS: 36415; 76801; 76830; 80053; 81003; 83690; 84702; 85025; 86900; 86901; 99284